=== PATIENT | male | born 1990 | race Caucasian/White ===

== ENCOUNTER → 2016-07-24 | Outpatient (REF) | payer BC ==
[2016-07-24 14:01] LABS: INR 0.97
== END ==
LOC: M LABDRAW1 12:57
PROVIDERS: ATTEND Physical Medicine & Rehabilitation
DX: Z01.812 Encounter for preprocedural laboratory examination (principal)

== ENCOUNTER 2016-10-19 18:36 | Emergency (ER) | payer BC ==
[~2016-10-19] VITALS: Ht 182.9 cm; Wt 135.6 kg
[2016-10-19 18:36] VITALS: BP 143/79
[2016-10-19] MEDS ORDERED: HYDR-3713 (18:48)
[2016-10-19] MEDS ORDERED: TIZANIDINE (18:48)
[2016-10-19 19:45] LABS: BASO # 0.1 K/mm3 (0.0-0.2); BASO % 0.4 % (0.0-1.0); EOS # 0.2 K/mm3 (0.0-0.50); EOS % 1.7 % (0.0-3.0); LARGE UNSTAINED CELL # 0.2 K/mm3 (0.0-0.4); LARGE UNSTAINED CELL % 1.5 % (0.0-4.0); LYMPH # 3.4 K/mm3 (1.5-6.5); LYMPH % 22.2 % (24.0-44.0); MEAN CORPUSCULAR HEMOGLOBIN 30.7 pg (27.0-33.0); MEAN CORPUSCULAR HGB CONC 34.8 g/dl (32.0-36.5); MEAN CORPUSCULAR VOLUME 88.4 fl (80.0-96.0); MONO # 1.3 K/mm3 (0.0-0.8); MONO % 8.9 % (0.0-5.0); NEUTROPHILS # 9.3 K/mm3 (1.8-7.7); NEUTROPHILS % 65.3 % (36.0-66.0); PLATELET COUNT, AUTOMATED 243 k/mm3 (150-450); RED CELL DISTRIBUTION WIDTH 13.7 % (11.5-14.5); WHITE BLOOD COUNT 14.3 K/mm3 (4.0-10.0)
[2016-10-19 19:53] LABS: ANION GAP 6 MEQ/L (8-16); BLOOD UREA NITROGEN 15 MG/DL (7-18); CALCIUM LEVEL 8.9 MG/DL (8.5-10.1); CARBON DIOXIDE LEVEL 31 MEQ/L (21-32); CHLORIDE LEVEL 104 MEQ/L (98-107); CREATININE FOR GFR 0.87 MG/DL (0.70-1.30); GLOMERULAR FILTRATION RATE > 60.0 (>60); GLUCOSE, FASTING 87 MG/DL (70-105); SODIUM LEVEL 141 MEQ/L (136-145)
--- NOTE | 2016-10-19 20:10 | REPUSA ---
CLINICAL HISTORY: RENAL COLIC LEFT TECHNIQUE: Multiple axial, sagittal and coronal CT images were obtained through the abdomen and pelvi s without administration of oral or IV contrast material. COMMENTS: The liver is of uniform attenuation without mass or defect. There is no intra or extrahepatic biliary ductal dilatation. The spleen contains multiple calcified granulomas. The gallbladder is within norm al limits. The pancreas is of normal contour and attenuation characteristics. There is no evidence of adrenal mass. The kidneys are normal in size, shape and configuration. No renal or ureteral calculi are identified. There is no hydroureter or hydronephrosis. There is no evidence for appendicitis. There is no bowel wall thickening. No evidence for small or la rge bowel obstruction. There is no evidence of abdominal ascites or lymphadenopathy. There is no evidence of intrinsic or extrinsic bladder mass. There is no pelvic ascites or lymphadeno erik. Images of the lung bases show no evidence of pleural or parenchymal mass. There are no pleural effusi ons. The bony structures are free of lytic or blastic lesions. IMPRESSION: No acute pathology. No renal or ureteral calculi. Thank you for your kind referral of this patient.
[2016-10-19] MEDS ORDERED: ZOFR4TAB3 PO (20:16)
[2016-10-19] MEDS ORDERED: IBUP600T26 PO (20:16)
== END 2016-10-19 20:34 | disposition home or self-care (01) ==
LOC: M ED 19:51
DX: R10.9 Unspecified abdominal pain (principal); G89.29 Other chronic pain; Z79.899 Other long term (current) drug therapy

== ENCOUNTER 2017-05-20 12:41 | Emergency (ER) | payer OTHER, BC ==
[2017-05-20] MEDS: METHOCARBAMOL 750 MG TAB PO (14:06)
[2017-05-20] MEDS: KETOROLAC 60 MG/2 ML VIAL (J1885) IM (14:07)
== END 2017-05-20 14:52 | disposition home or self-care (01) ==
LOC: M ED 12:41
DX: S39.012A Strain of muscle, fascia and tendon of lower back, initial encounter (principal); M51.27 Other intervertebral disc displacement, lumbosacral region; X50.0XXA Overexertion from strenuous movement or load, initial encounter; Y92.9 Unspecified place or not applicable; Y93.89 Activity, other specified; Y99.0 Civilian activity done for income or pay; K21.9 Gastro-esophageal reflux disease without esophagitis; Z79.899 Other long term (current) drug therapy
CPT/HCPCS: J1885

== ENCOUNTER → 2017-06-08 | Outpatient (REF) | payer OTHER ==
[2017-06-08 12:28] LABS: C REACTIVE PROTEIN QUANTITATIV < 0.30 MG/DL (0.00-0.30); CREATININE FOR GFR 0.87 MG/DL (0.70-1.30); GLOMERULAR FILTRATION RATE > 60.0 (>60)
[2017-06-08 12:28] LABS: BLOOD UREA NITROGEN 11 MG/DL (7-18)
[2017-06-08 12:47] LABS: ERYTHROCYTE SEDIMENTATION RATE 2 mm/hr (0-15)
== END ==
LOC: M LABDRAW1 09:24
DX: M51.36 Other intervertebral disc degeneration, lumbar region (principal)

== ENCOUNTER → 2017-11-10 | Outpatient (REF) | payer BC | LOC: M SFHCPLAZ 14:54 | DX: N50.819 Testicular pain, unspecified (principal) ==

== ENCOUNTER → 2017-11-12 | Outpatient (CLI) | payer BC ==
[2017-11-12 14:21] LABS: APPEARANCE, URINE CLEAR (CLEAR); BACTERIA, URINE AUTO NEGATIVE (NEGATIVE); BILIRUBIN, URINE AUTO NEGATIVE (NEGATIVE); BLOOD, URINE BLOOD NEGATIVE (NEGATIVE); COLOR, URINE YELLOW (YELLOW); GLUCOSE, URINE (UA) AUTO NEGATIVE (NEGATIVE); KETONE, URINE AUTO TRACE mg/dL (NEGATIVE); LEUKOCYTE ESTERASE, URINE AUTO NEGATIVE (NEGATIVE); MUCUS, URINE SMALL (NEGATIVE); NITRITE, URINE AUTO NEGATIVE (NEGATIVE); PROTEIN, URINE AUTO NEGATIVE (NEGATIVE); RBC, URINE AUTO 12 /HPF (0-3); SPECIFIC GRAVITY URINE AUTO 1.031 (1.002-1.035); SQUAMOUS EPITHELIAL CELL UR AU 0 /HPF (0-6); WBC, URINE AUTO 1 /HPF (0-3)
[2017-11-12 16:00] LABS: CHLAMYDIA DNA AMPLIFICATION NEGATIVE (NEGATIVE); GC DNA AMPLIFICATION NEGATIVE (NEGATIVE)
== END ==
LOC: M LAB 13:27
DX: N50.819 Testicular pain, unspecified (principal)
CPT/HCPCS: 36415

== ENCOUNTER → 2018-01-25 | Outpatient (REF) | payer BC, OTHER ==
[2018-01-25 15:52] LABS: CREATININE FOR GFR 0.87 MG/DL (0.70-1.30); GLOMERULAR FILTRATION RATE > 60.0 (>60)
[2018-01-25 15:52] LABS: BLOOD UREA NITROGEN 17 MG/DL (7-18)
== END ==
LOC: M LABDRAW1 14:21
DX: M51.26 Other intervertebral disc displacement, lumbar region (principal)
CPT/HCPCS: 82565

== ENCOUNTER → 2019-10-24 | Outpatient (REF) | payer OTHER ==
[~2019-10-24] MED LIST: CYCL5TAB PO; HYDR-3713; IBUP-1022 PO; LIDO5DIS41 TOP; MELO15TA28; NAPR-885; OMEP-218; OMEP1CAP73 PO; PRED20TA PO; TIZA4CAP; TIZANIDINE; ZOFR4TAB14 PO
[2019-10-24 18:17] LABS: CHOLESTEROL RISK RATIO 6.027 (<5); FREE T4 1.05 NG/DL (0.76-1.46); THYROID STIMULATING HORMONE 1.17 uIU/ML (0.358-3.740)
[2019-10-24 18:25] LABS: HEMOGLOBIN A1c 5.7 %
== END ==
LOC: M SFHCPLAZ 15:54
PROVIDERS: ATTEND Family Medicine
DX: R63.5 Abnormal weight gain (principal)

== ENCOUNTER 2020-05-28 17:07 | Emergency (ER) | payer OTHER ==
[~2020-05-28] VITALS: Ht 182.9 cm; Wt 134.6 kg
[~2020-05-28 17:07] MED LIST changes: -CYCL5TAB PO; -LIDO5DIS41 TOP; -MELO15TA28; -OMEP-218; -PRED20TA PO
--- OUTSIDE RECORDS SUMMARY | 2020-05-28 17:13 | CCD | Continuity of Care Document ---
Author Author Anson MCDONOUGH PA Organization Unknown Address [address] [place] [address], [address] [address] Phone [phone] Care Team Providers Care Clinical Liaison Name Role Phone Wilfrid Lozoya MD AUTM [phone] Shawn Arreola MD AUTM [phone] Problems Description No Information Available Social History Type Date Description Comments Sex Unknown ETOH Use Drinks Alcoholic Beverages Rarel y Tobacco Use Start: Unknown End: Unknown Patient is a former smoker quit 3/4 years ago Allergies, Adverse Reactions, Alerts Description No Known Drug Allergies Medications Active Medications SIG Qnty Indications Ordering Provide r Date Gabapentin 100mg Capsules take 1 tablet three times a day comp 90caps M51.16 DRamya Kim MD 06/18/[address] 1 by mouth every day Unknown Tizanidine HCL 2mg Capsules 1-2 by mouth three times a day as needed Unknown Naproxen 250mg Tablets 1 by mouth twice a day w/ food Unknown Immunizations Description No Information Available Vital Signs Date Vital Result Comment 04/17/2020 2:42pm Body Temperature 97.8 F Height 72 inches 6'0" Weight 290.00 lb BMI (Body Mass Index) 39.3 kg/m2 07/22/2018 1:05pm Body Temperature 98.2 F Height 72 inches 6'0" Weight 268.25 lb BMI (Body Mass Index) 36.4 kg/m2 Results Description No Information Available Procedures Description No Information Available Medical Devices Description No Information Available Encounters Type Date Location Provider Dx Diagnosis Office Visit 04/17/2020 3:00p [place] JOSEF Avina M54.5 Low back pain M54.16 Radiculopathy, lumbar region M51.36 Other intervertebral disc de generation, lumbar region M47.896 Other spondylosis, lumbar re gion Assessments Date Code Description Provider 04/17/2020 M54.5 Low back pain JOSEF Avina 04/17/2020 M54.16 Radiculopathy, lumbar region [place] JOSEF Jacobs 04/17/2020 M51.36 Other intervertebral disc degene ration, lumbar region JOSEF Avina 04/17/2020 M47.896 Other spondylosis, lumbar region JOSEF Avina Plan of Treatment 04/17/2020 - JOSEF Avina* M54.5 Low back pain* Follow up:* with [facility] for results of MRI of lumbar spine via telemed * M54.16 Radiculopathy, lumbar region * M51.36 Other intervertebral disc degeneration, lumbar region * M47.896 Other spondylosis, lumbar region Functional Status Description No Information Available Mental Status Description No Information Available Referrals Refer to Dr Reason for Referral Status Appt Date Winston Barry MD MRI LUMBAR SPINE [facility] PER [facility]. PAS SED TO [place]. [place] Created [address] [place] [address], [address] [place] [address] [phone]
--- OUTSIDE RECORDS SUMMARY | 2020-05-28 17:13 | CCD | Continuity of Care Document ---
Author Author Anson MCDONOUGH [place] Organization Unknown Address [address] [facility], it e [address] [place] [address] Phone [phone] Care Team Providers Care Branch Customer Service Representative Name Role Phone Wilfrid Lozoya MD AUTM [phone] Shawn Arreola MD AUTM [phone] Problems Description No Information Available Social History Type Date Description Comments Sex Unknown ETOH Use Drinks Alcoholic Beverages Rarel y Tobacco Use Start: Unknown End: Unknown Patient is a former smoker quit 3/4 years ago Allergies, Adverse Reactions, Alerts Description No Known Drug Allergies Medications Active Medications SIG Qnty Indications Ordering Provide r Date Meloxicam 15mg Tablets 1 by mouth every day with food or milk 30tabs Winston Barry MD 2018 Nortriptyline HCL 10mg Capsules Take 1-2 tablets at bedtime as needed. 60caps Aniceto Quiñones 08/26/2018 Gabapentin 100mg Capsules take 1 tablet three times a day comp 90caps M51.16 D. Donny Kim MD 06/18/2018 Lidocaine 5% Patches apply to skin 12hours on 12hours off 30units Devin Rod MD 01/25/2018 Zanaflex 4mg Tablets 1 by mouth three times a day comp 90tabs M54.5 Ernesto Kohler MD [address] 1 by mouth every day Unknown Immunizations Description No Information Available Vital [...] Medical Devices Description No Information Available Encounters Description No Information Available Assessments Date Code Description Provider 04/17/2020 M51.26 Other intervertebral disc displa cement, lumbar region JOSEF Avina 04/17/2020 M47.27 Other spondylosis with radiculop athy, lumbosacral region JOSEF Avina 04/17/2020 M51.37 Other intervertebral disc degene ration, lumbosacral region JOSEF Avina Plan of Treatment 04/17/2020 - JOSEF Avina* M51.26 Other intervertebral disc displacement, lumbar region* New Xrays:* MRI Lumbar Spine, Ordered: 04/17/20 * Follow up:* with [facility] for results of MRI of lumbar spine via telemed * M47.27 Other spondylosis with radiculopathy, lumbosacral region * M51.37 Other intervertebral disc degeneration, lumbosacral region Functional Status Description No Information Available Mental Status Description No Information Available Referrals Description No Information Available
--- OUTSIDE RECORDS SUMMARY | 2020-05-28 17:13 | CCD ---
Author Author [facility] Organization [facility] Address Unknown Phone Unavailable Care Team Providers Care Licensing Coordinator Name Role Phone DRAZEK, I PERLA PA Unavailable Unavailable DRAZEK, I PERLA PA Unavailable Unavailable DRAZEK, I PERLA PA Unavailable Unavailable DRAZEK, I PERLA PA Unavailable Unavailable DRAZEK, I PERLA PA Unavailable Unavailable DRAZEK, I PERLA PA Unavailable Unavailable DRAZEK, I PERLA PA Unavailable Unavailable DRAZEK, I PERLA PA Unavailable Unavailable DRAZEK, I PERLA PA Unavailable Unavailable DRAZEK, I PERLA PA Unavailable Unavailable DRAZEK, I PERLA PA Unavailable Unavailable DRAZEK, I PERLA PA Unavailable Unavailable DRAZEK, I PERLA PA Unavailable Unavailable DRAZEK, I PERLA PA Unavailable Unavailable DRAZEK, I PERLA PA Unavailable Unavailable DRAZEK, I PERLA PA Unavailable Unavailable DRAZEK, I PERLA PA Unavailable Unavailable DRAZEK, I PERLA PA Unavailable Unavailable DRAZEK, I PERLA PA Unavailable Unavailable DRAZEK, I PERLA PA Unavailable Unavailable DRAZEK, I PERLA PA Unavailable Unavailable DRAZEK, I PERLA PA Unavailable Unavailable DRAZEK, I PERLA PA Unavailable Unavailable DRAZEK, I PERLA PA Unavailable Unavailable DRAZEK, I PERLA PA Unavailable Unavailable DRAZEK, I PERLA PA Unavailable Unavailable DRAZEK, I PERLA PA Unavailable Unavailable DRAZEK, I PERLA PA Unavailable Unavailable DRAZEK, I PERLA PA Unavailable Unavailable DRAZEK, I PERLA PA Unavailable Unavailable Re-disclosure Warning The records that you are about to access may contain information from federally-assisted alcohol or drug abuse programs. If such information is present, then the following federally mandated warning applies: This information has been disclosed to you from records protected by federal confidentiality rules (42 CFR part 2). The federal rules prohibit you from making any further disclosure of this information unless further disclosure is expressly permitted by the written consent of the person to whom it pertains or as otherwise permitted by 42 CFR part 2. A general authorization for the release of medical or other information is NOT sufficient for this purpose. The Federal rules restrict any use of the information to criminally investigate or prosecute any alcohol or drug abuse patient.The records that you are about to access may contain highly sensitive health information, the redisclosure of which is protected by Article 27-F of the [facility] Public Health law. If you continue you may have access to information: Regarding HIV / AIDS; Provided by facilities licensed or operated by the [facility] Office of Mental Health; or Provided by the [facility] Office for People With Developmental Disabilities. If such information is present, then the following [facility] mandated warning applies: This information has been disclosed to you from confidential records which are protected by state law. State law prohibits you from making any further disclosure of this information without the specific written consent of the person to whom it pertains, or as otherwise permitted by law. Any unauthorized further disclosure in violation of state law may result in a fine or intermediate sentence or both. A general authorization for the release of medical or other information is NOT sufficient authorization for further disc losure. Family History Family Member Name Family Member Gender Family Member Status Date o f Status Description Data Source(s) Unknown Unknown Problem MEDENT ([facility]) Unknown Female Problem MEDENT ([facility]) Encounters Encounter Providers Location Date Indications Data Source(s ) Outpatient Attender: PERLA BAHENA Physical Therapy 04/17/2020 0 2:00:00 PM EST MEDENT ([facility]) [place] [address] [facility] [address] 04/02/2020 12:00:00 AM EST eCW1 ([facility] hospital[facility] [place] [address] [facility] [address] 12/02/2019 12:00:00 AM EDT eCW1 (Critical access hospital) [place] [address] [facility] [address] 10/24/2019 12:00:00 AM EDT eCW1 (Critical access hospital) [facility] [address] [facility] [address] 05/31/2019 12:00:00 AM EST eCW1 (Critical access hospital) [facility] [address] [facility] [address] 05/23/2019 12:00:00 AM EST eCW1 (Critical access hospital) Medications Medication Brand Name Start Date Product Form Dose Route Admi nistrative Instructions Pharmacy Instructions Status Indications Reaction Description Data Source(s) 20 mg 07/22/2019 12:00:00 AM EDT capsule,delayed release (DR/EC) 60 TAKE ONE CAPSULE BY MOUTH EVERY DAY TAKE ONE CAPSULE BY MOUTH EVERY DAY SOLD: 07/29/2019 [facility] 20 mg 07/22/2019 12:00:00 AM EDT capsule,delayed release (DR/EC) 60 TAKE ONE CAPSULE BY MOUTH EVERY DAY TAKE ONE CAPSULE BY MOUTH EVERY DAY SOLD: 04/02/2020 [facility] 20 mg 07/22/2019 12:00:00 AM EDT capsule,delayed release (DR/EC) 60 TAKE ONE CAPSULE BY MOUTH EVERY DAY TAKE ONE CAPSULE BY MOUTH EVERY DAY SOLD: 11/25/2019 [facility] 20 mg 07/22/2019 12:00:00 AM EDT capsule,delayed release (DR/EC) 60 TAKE ONE CAPSULE BY MOUTH EVERY DAY TAKE ONE CAPSULE BY MOUTH EVERY DAY SOLD: 10/01/2019 [facility] 20 mg 07/22/2019 12:00:00 AM EDT capsule,delayed release (DR/EC) 60 TAKE ONE CAPSULE BY MOUTH EVERY DAY TAKE ONE CAPSULE BY MOUTH EVERY DAY SOLD: 01/31/2020 [facility] 20 mg 06/21/2018 12:00:00 AM EST capsule,delayed release (DR/EC) 30 TAKE ONE CAPSULE BY MOUTH EVERY DAY TAKE ONE CAPSULE BY MOUTH EVERY DAY SOLD: 06/24/2019 [facility] 20 mg 06/21/2018 12:00:00 AM EST capsule,delayed release (DR/EC) 30 TAKE ONE CAPSULE BY MOUTH EVERY DAY TAKE ONE CAPSULE BY MOUTH EVERY DAY SOLD: 04/24/2019 [facility] 20 mg 06/21/2018 12:00:00 AM EST capsule,delayed release (DR/EC) 30 TAKE ONE CAPSULE BY MOUTH EVERY DAY TAKE ONE CAPSULE BY MOUTH EVERY DAY SOLD: 05/21/2019 [facility] Insurance Providers Payer name Policy type / Coverage type Policy ID Covered republican ID Covered republican's relationship to coleman Policy Coleman Plan Information [facility] [id number] U [id number] [facility] [id number] STATE INSURANCE FUND O [id number] S [id number] ANSI-Commercial [id number] ANSI-Commercial [id number] ANSI-Not a Secondary Insurance [id number] State Ins Fund () Workers Compensation [id number] Self [id number] ANSI-Commercial [id number] ANSI-Commercial [id number] ANSI-Not a Secondary Insurance [id number] ANSI-Commercial [id number] ANSI-Not a Secondary Insurance [id number] ANSI-Not a Secondary Insurance [id number] ANSI-Commercial [id number] ANSI-Not a Secondary Insurance [id number] ANSI-Commercial [id number] ANSI-Not a Secondary Insurance [id number] ANSI-Commercial [id number] STATE INSURANCE FUND [id number] SP [id number] [employer] [place] PPO 302/307 [id number] [facility] [id number] SP [id number] ANSI-Commercial [id number] ANSI-Not a Secondary Insurance [id number] SELF PAY ONLY [id number] SP [id number] ANSI-Commercial [id number] ANSI-Commercial [id number] [employer] P[place] 302/307 [id number] STATE INSURANCE FUND [id number] SP [id number] BCBS/Blue Card Commercial [id number] Self E [id number] [employer]LL[employer] BCBS B [id number] S [id number] [employer] [place] PPO 302/307 [id number] SP [id number] State Ins Fund () Workers Compensation Self SELF PAY UNAVAILABLE SP UNAVAILA BLE [employer]LLUS BCBS B [id number] S [id number] Social History Code Duration Value Status Description Data Source(s ) Smoking 10/24/2019 12:00:00 AM EDT Former Smoker completed Former Smoker eCW1 ([facility]) Smoking 10/24/2019 12:00:00 AM EDT Former Smoker completed Former Smoker eCW1 ([facility]) Smoking 10/24/2019 12:00:00 AM EDT Former Smoker completed Former Smoker eCW1 ([facility]) Vital Signs ID Date Data Source UNK Name Value Range Interpretation Code Description Data Source(s) Body mass index (BMI) [Ratio] 39.3 kg/m2 39.3 k g/m2 [facility]it ([facility]) Body weight 290.00 [lb_av] 290.00 [lb_av] MEDEN T ([facility]) Body height 72 [in_i] 72 [in_i] MEDENT ([facility]) 6'0" Body temperature 97.8 [degF] 97.8 [degF] MEDENT ([facility] Diastolic blood pressure 80 mm[Hg] 80 mm[Hg] eCW1 ([facility]) Systolic blood pressure 120 mm[Hg] 120 mm[Hg] e CW1 ([facility]) Body temperature 98.0 [degF] 98.0 [degF] eCW1 ( [facility]) Respiratory rate 18 /min 18 /min eCW1 ([facility]) Heart rate 94 /min 94 /min eCW1 ([facility]) Body mass index (BMI) [Ratio] 40.95 kg/m2 40.95 kg/m2 eCW1 ([facility]) Body height 72 [in_i] 72 [in_i] eCW1 ([facility]) Body weight 302.0 [lb_av] 302.0 [lb_av] eCW1 ([facility])
--- OUTSIDE RECORDS SUMMARY | 2020-05-28 17:13 | CCD ---
Author Author [facility] Organization [facility] Address Unknown Phone Unavailable Care Team Providers Care Supply Person Name Role Phone Anand Harris Unavailable PROBLEMS Type Condition ICD9-CM Code QDN62-VT Code Onset Dates Condition S tatus SNOMED Code Notes Problem Gastroesophageal reflux disease without esophagitis K21.9 Active 316129719 Problem Obesity (BMI 30.0-34.9) E66.9 Active [id number] ALLERGIES No Known Allergies ENCOUNTERS from 1988 to 2020-04-03 Encounter Location Date Provider Diagnosis [facility] Resident [address] [place] [address] Mar, Anand Harris IMMUNIZATIONS Vaccine Route Administration Date Status Influenza (6mo & up) Fluzone Unknown Jun 03, 2017 Ref used SOCIAL HISTORY Tobacco Use: Social History Observation Description Date Details (start date - stop date) Former Smoker Sex Assigned At : Social History Observation Description Sex Assigned At Unknown Education: Question Answer Notes Level of Education: High School Audit Question Answer Notes Total Score: 0 Interpretation: Alcohol Education Language: Question Answer Notes Languages spoken: Chinese Rastafari: Question Answer Notes Rastafari No synagogue beliefs that would impact health care. Sexual Hx: Question Answer Notes Had sex in the last 12 months (vaginal, oral, or anal)? Yes with Women only Drug and Alcohol Question Answer Notes Total Score: 0 Interpretation: No problems reported Alcohol Screening: Question Answer Notes Did you have a drink containing alcohol in the past year? Ye s Points 1 Interpretation Negative How often did you have six or more drinks on one occas ion in the past year? Never (0 points) How many drinks did you have on a typica l day when you were drinking in the past year? 1 or 2 (0 points) How often did you have a drink containing alcohol in t he past year? Monthly or less (1 point) Tobacco Use: Question Answer Notes Are you a: former smoker How long has it been since you last smoked? > 10 years REASON FOR REFERRAL No Information VITAL SIGNS No information MEDICATIONS Medication SIG (Take, Route, Frequency, Duration) Notes Start Da te End Date Status [facility] Omeprazole 20 MG 1 tablet Orally Daily for 30 days Active Naproxen 500 MG 1 tablet with food or milk as needed Orally every 12 hrs Active Tizanidine HCl 4 MG 1 tablet as needed Orally Three times a day Active PROCEDURES No Information RESULTS No Results REASON FOR VISIT Medication MEDICAL (GENERAL) HISTORY Type Description Date Surgical History No Surgical history information Goals Section No Information Health Concerns No Information MEDICAL EQUIPMENT No Information MENTAL STATUS No Information FUNCTIONAL STATUS No Information ASSESSMENTS No Information PLAN OF TREATMENT Medication Medication Name Sig Start Date Stop Date [facility] Omeprazole 20 MG 1 tablet Orally Daily for 30 days Insurance Providers Payer Name Payer Address Payer Phone Insured Name Patient Relati onship to Insured Coverage Start Date Coverage End Date [facility] [address] [facility] [phone] ROXANE MCLAUGHLIN [facility] CORPORATE CLAIMS DEPT [address] [facility] [phone] ROXANE MCLAUGHLIN
[2020-05-28] MEDS ORDERED: OMEP-218 (17:15)
[2020-05-28] MEDS ORDERED: MELO15TA28 (17:15)
[2020-05-28] MEDS ORDERED: predniSONE 20 MG TAB PO ONE (19:15)
[2020-05-28] MEDS ORDERED: LIDOCAINE 5% (LIDODERM) PATCH TD ONE (19:15)
[2020-05-28] MEDS ORDERED: ACETAMINOPHEN 500 MG TAB PO ONE (19:15)
--- OUTSIDE RECORDS SUMMARY | 2020-05-28 20:55 | CCD ---
Author Author [facility] Organization [facility] Address Unknown Phone Unavailable Care Team Providers Care [employer] Name Role Phone DRAZEK, I PERLA PA Unavailable Unavailable DRAZEK, I PERLA PA Unavailable Unavailable DRAZEK, I PERAL PA Unavailable Unavailable DRAZEK, I PERLA PA [...] is protected by Article 27-F of the [facility] Public Health law. If you continue you may have access to information: Regarding HIV / AIDS; Provided by facilities licensed or operated by the [facility] Office of Mental Health; or Provided by the [facility] Office for People With Developmental Disabilities. If such information is present, then the following [facility] mandated warning applies: This information has been [...] law may result in a fine or care home sentence or both. A general authorization for the release of medical or other information is NOT sufficient authorization for further disc losure. Family History Family Member Name Family Member Gender Family Member Status Date o f Status Description Data Source(s) Unknown Unknown Problem MEDENT ([facility]) Unknown Female Problem MEDENT ([facility]) Encounters Encounter Providers Location Date Indications Data Source(s ) Outpatient Attender: PERLA BAHENA Physical Therapy 04/17/2020 0 2:00:00 PM EST MEDENT ([facility]) [place] [address] [address] 04/02/2020 12:00:00 AM EST eCW1 ([facility]) [place] [address] [address] 12/02/2019 12:00:00 AM EDT eCW1 ([facility]) [place] [address] [address] 10/24/2019 12:00:00 AM EDT eCW1 ([facility]) [facility] [place] [address] [address] 05/31/2019 12:00:00 AM EST eCW1 ([facility]) [facility] [address] [address] 05/23/2019 12:00:00 AM EST eCW1 ([facility]) Medications Medication Brand Name Start Date Product [...] type / Coverage type Policy ID Covered alliance party ID Covered alliance party's relationship to coleman Policy Coleman Plan Information [facility] [id number] [facility] [id number] [facility] [id number] STATE INSURANCE FUND O [id number] S [id number] ANSI-Commercial [id number] ANSI-Commercial [id number] ANSI-Not a Secondary Insurance [id number] State Ins Fund () Workers Compensation [id number] Self [id number] ANSI-Commercial [id number] ANSI-Commercial [id number] ANSI-Not a Secondary Insurance [id number] ANSI-Commercial [id number] ANSI-Not a Secondary Insurance [id number] ANSI-Not a Secondary Insurance [id number] ANSI-Commercial [id number] ANSI-Not a Secondary Insurance [id number] ANSI-Commercial [id number] ANSI-Not a Secondary Insurance [id number] ANSI-Commercial [id number] STATE INSURANCE FUND [id number] SP [id number] [employer] [place] PPO 302/[id number] [facility] [id number] SP [id number] ANSI-Commercial [id number] ANSI-Not a Secondary Insurance [id number] SELF PAY ONLY [id number] SP [id number] ANSI-Commercial [id number] ANSI-Commercial [id number] [place] PPO 302/307 [id number] STATE INSURANCE FUND [id number] SP [id number] BCBS/Blue Card Commercial [id number] Self E [id number] [employer]LL[employer] BCBS B [id number] S [id number] [employer] [place] PPO 302/307 [id number] SP [id number] State Ins Fund () Workers Compensation Self SELF PAY UNAVAILABLE SP UNAVAILA BLE [employer] BCBS B [id number] Social History Code Duration Value Status Description Data Source(s ) Smoking 10/24/2019 12:00:00 AM EDT Former Smoker completed [facility] Smoking 10/24/2019 12:00:00 AM EDT Former Smoker completed Former Smoker [facility]) Smoking 10/24/2019 12:00:00 AM EDT Former Smoker completed Former Smoker [facility]) Vital Signs ID Date Data Source UNK Name Value Range Interpretation Code Description Data Source(s) Body mass index (BMI) [Ratio] 39.3 kg/m2 39.3 k g/m2 [facility] ([facility]) Body weight 290.00 [lb_av] 290.00 [lb_av] MEDEN T ([facility]) Body height 72 [in_i] 72 [in_i] MEDENT ([facility]) 6'0" Body temperature 97.8 [degF] 97.8 [degF] MEDENT ([facility] Diastolic blood pressure 80 mm[Hg] 80 mm[Hg] [facility]) Systolic blood pressure 120 mm[Hg] 120 mm[Hg] e CW1 ([facility]) Body temperature 98.0 [degF] 98.0 [degF] [facility]) Respiratory rate 18 /min 18 /min eCW1 ([facility]) Heart rate 94 /min 94 /min eCW1 ([facility]) Body mass index (BMI) [Ratio] 40.95 kg/m2 40.95 kg/m2 [facility]CW[facility] ([facility]) Body height 72 [in_i] 72 [in_i] eCW1 ([facility]) Body weight 302.0 [lb_av] 302.0 [lb_av] eCW1 ([facility])
[2020-05-28] MEDS ORDERED: **NOTE PATIENT COMMENT** MISC XX SCH (21:00)
[2020-05-28] MEDS ORDERED: LIDO5DIS41 TOP (21:08)
--- NOTE | 2020-05-28 21:31 | REPVR ---
PROCEDURE INFORMATION: Exam: CT Lumbar Spine Without Contrast Exam date and time: 05/28/2020 8:58 PM Age: 30 years old Clinical indication: Low back pain; Additional info: Midline low back pain TECHNIQUE: Imaging protocol: Computed tomography images of the lumbar spine without contrast. Radiation optimization: All CT scans at this facility use at least one of these dose optimization techniques: automated exposure control; mA and/or kV adjustment per patient size (includes targeted exams where dose is matched to clinical indication); or iterative reconstruction. COMPARISON: No relevant prior studies available. FINDINGS: Vertebrae: No acute fracture. Normal alignment. Discs/Spinal canal/Neural foramina: Mild posterior disc bulging at L4-L5 and L5-S1. Possible 4 mm right paracentral disc protrusion at L4-L5. Intervertebral disc spaces are otherwise unremarkable. No spinal stenosis. Facet joints are unremarkable. Soft tissues: Unremarkable. IMPRESSION: 1. Small posterior disc bulges at L4-L5 and L5-S1. 2. Possible small right paracentral disc protrusion at L4-L5. 3. No acute fracture or malalignment. Electronically signed by: Rah Dick On 05/28/2020 21:30:50 PM
[2020-05-28] MEDS ORDERED: CYCL5TAB PO (21:37)
[2020-05-28] MEDS ORDERED: PRED20TA PO (21:37)
[2020-05-28 21:41] VITALS: BP 150/96
== END 2020-05-28 21:43 | disposition home or self-care (01) ==
LOC: M ED 17:07
DX: S39.012A Strain of muscle, fascia and tendon of lower back, initial encounter (principal); X50.0XXA Overexertion from strenuous movement or load, initial encounter; Y92.89 Other specified places as the place of occurrence of the external cause; Y93.89 Activity, other specified; Y99.8 Other external cause status; M51.26 Other intervertebral disc displacement, lumbar region; M51.27 Other intervertebral disc displacement, lumbosacral region; G89.29 Other chronic pain; E66.9 Obesity, unspecified; K21.9 Gastro-esophageal reflux disease without esophagitis; Z79.899 Other long term (current) drug therapy; Z87.828 Personal history of other (healed) physical injury and trauma; Z82.49 Family history of ischemic heart disease and other diseases of the circulatory system

== ENCOUNTER → 2020-08-24 | Outpatient (REF) | payer OTHER ==
[~2020-08-24] MED LIST changes: +CYCL5TAB PO; +LIDO5DIS41 TOP; +MELO15TA28; +OMEP-218; +PRED20TA PO
== END ==
LOC: M SFHCPLAZ 14:03
PROVIDERS: ATTEND Family Medicine
DX: Z53.9 Procedure and treatment not carried out, unspecified reason (principal); K52.9 Noninfective gastroenteritis and colitis, unspecified

== ENCOUNTER → 2020-08-27 | Outpatient (REF) | payer OTHER ==
[2020-08-27 11:03] LABS: BASO % 0.4 % (0.0-1.0); EOS # 0.1 10^3/uL (0.0-0.5); EOS % 0.8 % (0.0-3.0); HEMOGLOBIN 15.9 g/dl (13.5-17.5); LYMPH # 1.9 10^3/uL (1.5-5.0); LYMPH % 17.7 % (24.0-44.0); MEAN CORPUSCULAR HEMOGLOBIN 29.2 pg (27.0-33.0); MEAN CORPUSCULAR HGB CONC 32.4 g/dl (32.0-36.5); MEAN CORPUSCULAR VOLUME 89.9 fl (80.0-96.0); MONO # 0.7 10^3/uL (0.0-0.8); MONO % 6.8 % (2.0-8.0); NEUTROPHILS # 7.8 10^3/uL (1.5-8.5); NEUTROPHILS % 73.5 % (36.0-66.0); PLATELET COUNT, AUTOMATED 235 10^3/uL (150-450); RED BLOOD COUNT 5.45 10^6/uL (4.30-6.10); WHITE BLOOD COUNT 10.6 10^3/uL (4.0-10.0)
[2020-08-27 11:33] LABS: ERYTHROCYTE SEDIMENTATION RATE 3 mm/hr (0-15)
[2020-08-27 12:00] LABS: ALBUMIN 3.7 GM/DL (3.2-5.2); ALT/SGPT 46 U/L (12-78); BILIRUBIN,TOTAL 0.3 MG/DL (0.2-1.0); BLOOD UREA NITROGEN 10 MG/DL (7-18); CALCIUM LEVEL 9.5 MG/DL (8.5-10.1); CARBON DIOXIDE LEVEL 28 MEQ/L (21-32); CHLORIDE LEVEL 105 MEQ/L (98-107); CREATININE FOR GFR 0.74 MG/DL (0.70-1.30); GLOMERULAR FILTRATION RATE > 60.0 (>60); GLUCOSE, FASTING 109 MG/DL (70-100); LIPASE 448 U/L (73-393); POTASSIUM SERUM 4.1 MEQ/L (3.5-5.1); SODIUM LEVEL 140 MEQ/L (136-145); THYROID STIMULATING HORMONE 0.581 uIU/ML (0.358-3.740); TOTAL PROTEIN 7.2 GM/DL (6.4-8.2)
[2020-08-28 13:11] LABS: TISSUE TRANSGLUTAMINASE IgG 4 U/mL (0-5); UNITSIGA FOR GLIADIN IGA 3 units (0-19); UNITSIGG FOR GLIADIN IGG 2 units (0-19)
== END ==
LOC: M SFHCPLAZ 08:27
PROVIDERS: ATTEND Family Medicine
DX: K52.9 Noninfective gastroenteritis and colitis, unspecified (principal)

== ENCOUNTER → 2021-08-29 | Outpatient (CLI) | payer OTHER ==
[~2021-08-29] MED LIST changes: +OMEP-173; -OMEP-218
== END ==
LOC: M PLAIMG 15:10
PROVIDERS: ATTEND Physician Assistant
DX: M51.26 Other intervertebral disc displacement, lumbar region (principal); M51.27 Other intervertebral disc displacement, lumbosacral region

== ENCOUNTER → 2022-07-23 | Outpatient (CLI) | payer OTHER ==
[2022-07-23 15:39] LABS: BLOOD UREA NITROGEN 17 MG/DL (9-23); CREATININE FOR GFR 0.77 MG/DL (0.70-1.30); GLOMERULAR FILTRATION RATE > 60.0 (>60)
== END ==
LOC: M PLALAB 12:21
PROVIDERS: ATTEND Physician Assistant
DX: M51.27 Other intervertebral disc displacement, lumbosacral region (principal)

== ENCOUNTER → 2023-09-28 | Outpatient (CLI) | payer OTHER | LOC: M PLAIMG 15:14 | PROVIDERS: ATTEND Physician Assistant | DX: M51.37 Other intervertebral disc degeneration, lumbosacral region (principal) ==

== ENCOUNTER → 2023-10-12 | Outpatient (REF) | payer BC | LOC: M LAB REF 16:38 | PROVIDERS: ATTEND Internal Medicine | DX: R19.7 Diarrhea, unspecified (principal) ==

== ENCOUNTER → 2023-10-30 | Outpatient (REF) | payer BC ==
[2023-10-30 19:16] LABS: EOSINOPHILS 1 % (0-3); LYMPHOCYTES 23 % (16-44); MONOCYTES 6 % (0-5); NEUTROPHILS 70 % (28-66)
[2023-10-30 19:17] LABS: PLATELET ESTIMATE NORMAL (NORMAL)
== END ==
LOC: M LAB REF 16:41
PROVIDERS: ATTEND Internal Medicine
DX: D72.9 Disorder of white blood cells, unspecified (principal)

== ENCOUNTER 2024-07-03 10:15 | Emergency (ER) | payer BC ==
[~2024-07-03] VITALS: Ht 182.9 cm; Wt 126.6 kg
[~2024-07-03 10:15] MED LIST changes: +CVS1CHW13 PO; -CYCL5TAB PO; +CYCL5TAB4 PO; -MELO15TA28; +MELO15TA28 PO; -OMEP-173; +OMEP-173 PO; +PROBCAP14 PO; +TIZA2CAP PO
[2024-07-03 10:24] VITALS: BP 153/82; TEMP 98.6; O2SAT 98
[2024-07-03] MEDS ORDERED: ACE65ERTAB PO (10:27)
[2024-07-03] MEDS: AUGMENTIN 875 MG TAB PO ONE (13:30)
[2024-07-03] MEDS: KETOROLAC 60MG 2ML VIAL IM ONE (13:30)
[2024-07-03] MEDS: dexAMETHasone 4 MG TAB PO ONE (13:30)
[2024-07-03] MEDS ORDERED: AMOX875T2 PO (13:55)
== END 2024-07-03 14:02 | disposition home or self-care (01) ==
LOC: M ED 10:15
DX: K04.7 Periapical abscess without sinus (principal); M54.50 Low back pain, unspecified; K21.9 Gastro-esophageal reflux disease without esophagitis; Z79.2 Long term (current) use of antibiotics; Z79.1 Long term (current) use of non-steroidal anti-inflammatories (NSAID); Z79.899 Other long term (current) drug therapy
CPT/HCPCS: 96372; 99283; J1885

== ENCOUNTER 2024-07-06 07:13 | Day surgery (SDC) | payer BC ==
[~2024-07-06] VITALS: Ht 182.9 cm; Wt 126.0 kg
[~2024-07-06 07:13] MED LIST changes: +ACE65ERTAB PO; +AMOX875T2 PO
[2024-07-06] MEDS ORDERED: propofoL 200 MG/20 ML VIAL As Ordered ONE (08:55)
[2024-07-06] MEDS ORDERED: fentaNYL 100 MCG/2 ML INJECTION As Ordered ONE (08:55)
[2024-07-06] MEDS ORDERED: LIDOCAINE 2% 100MG/5ML SDV (FOR ANES.) As Ordered ONE (08:55)
[2024-07-06 09:03] VITALS: TEMP 97.1
[2024-07-06 09:24] VITALS: BP 132/72; O2SAT 96
== END 2024-07-06 09:36 | disposition home or self-care (01) ==
LOC: M OPP 07:13
PROVIDERS: ATTEND Surgery
DX: K22.89 Other specified disease of esophagus (principal); K25.9 Gastric ulcer, unspecified as acute or chronic, without hemorrhage or perforation; R10.13 Epigastric pain; Z79.899 Other long term (current) drug therapy
CPT/HCPCS: 43239; 88305; J3010